=== PATIENT | male | born 1980 | race Caucasian/White ===

== ENCOUNTER 2017-07-24 10:48 | Emergency (ER) | payer OTHER ==
--- NOTE | 2017-07-24 11:33 | EDM.PDOC ---
ED HPI GENERAL MEDICAL PROBLEM - General Chief Complaint: Upper Extremity Injury/Pain Stated Complaint: RIGHT HAND LAC Time Seen by Provider: 07/24/17 11:00 Source of Information: Reports: Patient History Limitations: Reports: No Limitations - History of Present Illness INITIAL COMMENTS - FREE TEXT/NARRATIVE: Patient is a 36-year-old male who presents ED complaining of a laceration to the distal tip of the right index finger. Patient was cutting food at [employer] and acidentally sliced off a chunk of his finger. Bleeding has persisted. Pain is minimal. Tetanus status is up-to-date per patient. It was also noted by triage that he had a burn to the left thumb. Patient does not want any treatment for this. Right Hand Pain Score (Numeric/FACES): 8 - Related Data Allergies Allergy/AdvReac Type Severity Reaction Status Date / Time No Known Allergies Allergy Verified 07/24/17 10:53 Home Meds: Home Meds . [No Known Home Meds] 07/24/17 [History] Past Medical History - Past Health History Medical/Surgical History: Denies Medical/Surgical History Social & Family History - Tobacco Use Smoking Status *Q: Current Every Day Smoker Years of Tobacco use: 20 Packs/Tins Daily: 1 - Recreational Drug Use Recreational Drug Use: Yes Drug Use in Last 12 Months: Yes Recreational Drug Type: Reports: Methamphetamine Review of Systems - Review of Systems Review Of Systems: ROS reveals no pertinent complaints other than HPI. ED EXAM, GENERAL - Physical Exam Exam: See Below Exam Limited By: No Limitations General Appearance: Alert, WD/WN, No Apparent Distress Ears: Hearing Grossly Normal Nose: Normal Inspection Throat/Mouth: Normal Voice, No Airway Compromise Neck: Normal Inspection, Supple Respiratory/Chest: No Respiratory Distress, No Accessory Muscle Use Cardiovascular: Normal Peripheral Pulses, Regular Rate, Rhythm Peripheral Pulses: 4+: Radial (R) Extremities: Other (approximately 1cm x0.5 cm wound to the right index finger along the lateral border of the lateral border of the finger tip involving small portion of the nailbed. Bleeding present. No sensory/motor changes. ) Neurological: Alert, Oriented, CN II-XII Intact, Normal Cognition, No Motor/ Sensory Deficits Psychiatric: Normal Affect, Normal Mood Skin Exam: Warm, Dry, Normal Color Course - Vital Signs Last Recorded V/S: Last Vital Signs Temp 98.3 F 07/24/17 10:53 Pulse 96 07/24/17 10:53 Resp BP 150/110 H 07/24/17 10:53 Pulse Ox 97 07/24/17 10:53 - Re-Assessments/Exams Free Text/Narrative Re-Assessment/Exam: Bleeding from the distal tip of the right index finger. Tourniquet applied to the base of the finger to slow bleeding. Applied silver nitrate to the affected area with some oozing present. Ordered nursing staff to apply surgicell to the affected area. Dressing applied to nursing staff. Discharge instructions as documented. Departure - Departure Time of Disposition: 11:34 Disposition: Home, Self-Care 01 Condition: Good Clinical Impression: Laceration of finger nail bed Qualifiers: Encounter type: initial encounter Qualified Code(s): S61.319A - Laceration without foreign body of unspecified finger with damage to nail, initial encounter - Discharge Information Instructions: Laceration Care, Adult, Nail Bed Injury, [id number], Nail Bed Laceration, Nonsutured Laceration Care Referrals: PCP,None [Primary Care Provider] - Forms: ED Department Discharge, ED Return to Work/School Form Additional Instructions: Leave dressing in place until tomorrow at noon. Pull off gently. If stuck to the laceration site soak it prior to point off. Cleanse site twice daily, reapply triple antibiotic ointment, dressing, keep area clean and dry. Do not soak wound and dirty bath water, dirty dish water, garcía/river water, hot tub water. Surgicell should pull off easily with soaking. If bleeding persist hold direct pressure to the site. Return to the E.D. for any new or worsening symptoms.
== END 2017-07-24 11:40 | disposition home or self-care (01) ==
LOC: JD.ED 10:48
DX: S61.210A Laceration without foreign body of right index finger without damage to nail, initial encounter (principal); F17.210 Nicotine dependence, cigarettes, uncomplicated; Y99.0 Civilian activity done for income or pay; W26.9XXA Contact with unspecified sharp object(s), initial encounter
CPT/HCPCS: 99283

== ENCOUNTER 2017-07-24 20:54 | Emergency (ER) | payer OTHER ==
--- NOTE | 2017-07-24 21:44 | EDM.PDOC ---
ED HPI GENERAL MEDICAL PROBLEM - General Chief Complaint: Laceration Stated Complaint: RIGHT HAND FINGER INJURIED Time Seen by Provider: 07/24/17 21:28 Source of Information: Reports: Patient History Limitations: Reports: No Limitations - History of Present Illness INITIAL COMMENTS - FREE TEXT/NARRATIVE: Patient is a 36-year-old male who presents to the ED complaining of bleeding from a laceration to the distal tip of the right index finger. Patient was cutting food at [employer] and accidentally sliced off a chunk of his finger. He was initially evaluated by me today with bleeding resolved with silver nitrate. Only a small amount of oozing noted. surgicell dressing applied with tube gauze. Patient states the dressing fell off and bleeding restarted. He is here to have the bleeding stopped. Right 2-Index finger Pain Score (Numeric/FACES): 10 - Related Data Allergies Allergy/AdvReac Type Severity Reaction Status Date / Time No Known Allergies Allergy Verified 07/24/17 10:53 Home Meds: Home Meds . [No Known Home Meds] 07/24/17 [History] Past Medical History - Past Health History Medical/Surgical History: Denies Medical/Surgical History Social & Family History - Tobacco Use Smoking Status *Q: Current Every Day Smoker Years of Tobacco use: 20 Packs/Tins Daily: 1 - Recreational Drug Use Recreational Drug Use: No ED ROS GENERAL - Review of Systems Review Of Systems: ROS reveals no pertinent complaints other than HPI. ED EXAM, SKIN/RASH Exam: See Below Text/Narrative:: Exam Limited By: No Limitations General Appearance: Alert, WD/WN, No Apparent Distress Ears: Hearing Grossly Normal Nose: Normal Inspection Throat/Mouth: Normal Voice, No Airway Compromise Neck: Normal Inspection, Supple Respiratory/Chest: No Respiratory Distress, No Accessory Muscle Use Cardiovascular: Normal Peripheral Pulses, Regular Rate, Rhythm Peripheral Pulses: 4+: Radial (R) Extremities: Other (approximately 1cm x0.5 cm wound to the right index finger along the lateral border of the lateral border of the finger tip involving small portion of the nailbed. Minimal bleeding present. No sensory/motor changes. ) Neurological: Alert, Oriented, CN II-XII Intact, Normal Cognition, No Motor/ Sensory Deficits Psychiatric: Normal Affect, Normal Mood Skin Exam: Warm, Dry, Normal Color Course - Vital Signs Last Recorded V/S: Last Vital Signs Temp 97.8 F 05/27/18 20:59 Pulse 85 07/24/17 20:59 Resp 16 07/24/17 20:59 BP 150/98 H 07/24/17 20:59 Pulse Ox 98 07/24/17 20:59 - Re-Assessments/Exams Free Text/Narrative Re-Assessment/Exam: Bleeding ligated with silver nitrate initially. Short time later bleeding started again described as oozing. Placed quick clot dressing to the affected finger with tube gauze dressing. Will discharge patient home with instructions as documented. Departure - Departure Time of Disposition: 21:44 Disposition: Home, Self-Care 01 Condition: Good Clinical Impression: Laceration of finger nail bed Qualifiers: Encounter type: initial encounter Qualified Code(s): S61.319A - Laceration without foreign body of unspecified finger with damage to nail, initial encounter - Discharge Information Instructions: Wound Care, Adult, Nail Bed Injury, [id number], Nail Bed Laceration Referrals: PCP,None [Primary Care Provider] - Forms: ED Department Discharge Additional Instructions: Leave dressing in place until tomorrow at noon. Pull off gently. If stuck to the laceration site soak it prior to point off. Cleanse site twice daily, reapply triple antibiotic ointment, dressing, keep area clean and dry. Do not soak wound and dirty bath water, dirty dish water, garcía/river water, hot tub water. Surgicell should pull off easily with soaking. If bleeding persist hold direct pressure to the site. Return to the E.D. for any new or worsening symptoms.
== END 2017-07-24 21:49 | disposition home or self-care (01) ==
LOC: JD.ED 20:54
DX: S61.310A Laceration without foreign body of right index finger with damage to nail, initial encounter (principal); F17.210 Nicotine dependence, cigarettes, uncomplicated; W26.9XXA Contact with unspecified sharp object(s), initial encounter; S61.210A Laceration without foreign body of right index finger without damage to nail, initial encounter; Y99.0 Civilian activity done for income or pay
CPT/HCPCS: 99283

== ENCOUNTER 2017-08-13 20:20 | Emergency (ER) | payer SELFPAY ==
--- NOTE | 2017-08-13 20:40 | EDM.PDOC ---
ED HPI GENERAL MEDICAL PROBLEM - General Chief Complaint: Upper Extremity Injury/Pain Stated Complaint: INJURED RIGHT WRIST Time Seen by Provider: 08/13/17 20:26 Source of Information: Reports: Patient, Significant Other (Girlfriend) History Limitations: Reports: No Limitations - History of Present Illness INITIAL COMMENTS - FREE TEXT/NARRATIVE: The patient states that he woke up with right wrist pain this morning. No injury , although the patient works as a cook at [employer], and acknowledges that it is possible that he strained his wrist. The patient is left-handed. No prior similar pain to his right wrist. The patient has not taken any [id number] medications to try to treat his pain today. The patient does not have a PCP. Right Wrist Pain Score (Numeric/FACES): 10 - Related Data Allergies Allergy/AdvReac Type Severity Reaction Status Date / Time No Known Allergies Allergy Verified 07/24/17 10:53 Home Meds: Home Meds . [No Known Home Meds] 07/24/17 [History] Past Medical History - Past Surgical History HEENT Surgical History: Reports: Myringotomy w Tube(s) (bilaterally) Social & Family History - Family History Family Medical History: Noncontributory - Tobacco Use Smoking Status *Q: Current Every Day Smoker Years of Tobacco use: 11 Packs/Tins Daily: 1 - Caffeine Use Caffeine Use: Reports: Coffee - Alcohol Use Alcohol Use History: Yes Alcohol Use Frequency: Socially - Recreational Drug Use Recreational Drug Use: No - Living Situation & Occupation Living situation: Reports: Single, with Significant Other (Girlfriend) Occupation: Employed ([employer]) Review of Systems - Review of Systems Review Of Systems: ROS reveals no pertinent complaints other than HPI. ED EXAM, GENERAL - Physical Exam Exam: See Below Exam Limited By: No Limitations General Appearance: Alert, WD/WN, No Apparent Distress Extremities: Normal Inspection, Normal Range of Motion, Normal Capillary Refill , Other (No visible abnormality to the right wrist, when compared to the left, such as swelling, erythema, ecchymosis, or abrasion. There is mild tenderness to palpation all about the wrist in a bandlike distribution, and considerable pain is induced with both passive and active ROM in all directions, particularly with passive flexion of the wrist, causing pain to the dorsal aspect of the wrist. Neurovascular status of the right upper extremity is intact.) Course - Vital Signs Last Recorded V/S: Last Vital Signs Temp 36.6 C 08/13/17 20:25 Pulse 55 L 08/13/17 20:25 Resp 18 08/13/17 20:25 BP 142/83 H 08/13/17 20:25 Pulse Ox 62 L 08/13/17 20:25 - Re-Assessments/Exams Free Text/Narrative Re-Assessment/Exam: 08/13/17 20:35 The patient appears to have strained his right wrist, as he has tenderness to the soft tissue surrounding his wrist, and pain is induced with both passive and active ROM. There is no suggestion of a bony injury, and no history of trauma, therefore x-rays were not indicated. I'm recommending that he wear a Velcro wrist splint for several days, along with ibuprofen. If his symptoms do not improve, I will have him follow-up with Dr. Davis. The patient states that he has a Velcro wrist brace at home. Departure - Departure Time of Disposition: 20:36 Disposition: Home, Self-Care 01 Condition: Good Clinical Impression: Strain of right wrist - Discharge Information Instructions: Muscle Strain, [id number] Referrals: PCP,None [Primary Care Provider] - Fermin Davis MD [Physician] - Forms: ED Department Discharge Additional Instructions: You were seen in the emergency room for right wrist pain, without injury. On examination, it appears that you have strained the ends of your right wrist. As discussed, we recommend that you wear a Velcro wrist brace for the next several days. You indicated that you have one at home, however, if you cannot find it, they are available [id number]. In addition, we recommend that you take [id number] ibuprofen, 2-3 tablets (400-600 mg) every 8 hours, with food, as needed for discomfort. If your wrist fails to improve within a week, please follow-up with the Orthopedic Surgeon Dr. Davis at the next available appointment. If any other problems, please do not hesitate to return to the ER.
== END 2017-08-13 20:49 | disposition home or self-care (01) ==
LOC: JD.ED 20:20
DX: S66.911A Strain of unspecified muscle, fascia and tendon at wrist and hand level, right hand, initial encounter (principal); F17.210 Nicotine dependence, cigarettes, uncomplicated; X58.XXXA Exposure to other specified factors, initial encounter
CPT/HCPCS: 99283